=== PATIENT | male | born 2000 | race African-American/Black ===

== ENCOUNTER 2023-05-12 16:11 | Emergency (ER) | payer OTHER ==
[2023-05-12 16:24] VITALS: BP 112/61; PULSE 96; RESP 19; TEMP 98.3; BMI 20.2
[2023-05-12 17:01] LABS: PH,URINE 5.5 (5.0-8.0); URINE APPEARANCE CLEAR; URINE BILIRUBIN NEGATIVE (NEGATIVE); URINE COLOR YELLOW; URINE GLUCOSE (UA) NEGATIVE (NEGATIVE); URINE KETONE NEGATIVE (NEGATIVE); URINE LEUK ESTERASE NEGATIVE (NEGATIVE); URINE NITRITE NEGATIVE (NEGATIVE); URINE PROTEIN NEGATIVE (NEGATIVE); URINE UROBILINOGEN 0.2 mg/dL (0.2-1.0)
== END 2023-05-12 17:20 | disposition home or self-care (01) ==
LOC: JERFT 16:11
DX: N48.89 Other specified disorders of penis (principal); Z11.3 Encounter for screening for infections with a predominantly sexual mode of transmission
CPT/HCPCS: 36415; 81003; 87086; 87491; 87591; 87661; 99283-25